=== PATIENT | male | born 1965 | race Caucasian/White ===

== ENCOUNTER 2018-11-15 12:06 | Emergency (ER) | payer MEDICAID ==
[~2018-11-15] VITALS: Ht 182.9 cm; Wt 91.0 kg
[2018-11-15] MEDS ORDERED: ACETAMINOPHEN WITH CODEINE 300/30MG TABLET PO STA (12:29)
[2018-11-15 13:30] LABS: COLOR URINE YELLOW (YELLOW); KETONES URINE NEGATIVE (NEGATIVE); LEUKOCYTE ESTERASE URINE NEGATIVE (NEGATIVE); NITRITE URINE NEGATIVE (NEGATIVE); OCCULT BLOOD URINE NEGATIVE (NEGATIVE); PROTEIN URINE NEGATIVE (NEGATIVE); SPECIFIC GRAVITY URINE 1.018 (1.005-1.030); UROBILINOGEN URINE 0.2 E.U./dL (0.2-1.0)
[2018-11-15 13:33] LABS: CLARITY URINE CLOUDY (CLEAR)
[2018-11-15 14:02] LABS: BASOPHILS % 1.3 % (0.0-2.0); HEMATOCRIT. 44.8 % (42.0-52.0); HEMOGLOBIN. 15.5 g/dL (14.0-18.0); LYMPHOCYTES % 24.7 % (20.0-50.0); MEAN CORPUSCULAR HEMOGLOBIN 30.2 pg (28.0-32.0); MEAN CORPUSCULAR VOLUME 87.5 fL (80.0-94.0); MEAN PLATELET VOLUME 10.4 fl (7.4-10.4); MONOCYTES % 9.9 % (2.0-8.0); NEUTROPHILS % 61.1 % (40.0-76.0); PLATELET 173 x1000/uL (130-400); RED BLOOD CELL COUNT 5.12 mill/uL (4.7-6.1); RED CELL DISTRIBUTION WIDTH 13.4 % (11.6-14.6)
[2018-11-15 14:03] LABS: CHLORIDE 108 mEq/L (98-107)
[2018-11-15 14:40] VITALS: BP 153/93
== END 2018-11-15 14:53 | disposition home or self-care (01) ==
LOC: ER 12:06
DX: R10.9 Unspecified abdominal pain (principal); I10 Essential (primary) hypertension; Z90.5 Acquired absence of kidney; Z98.890 Other specified postprocedural states; Z88.0 Allergy status to penicillin
CPT/HCPCS: 36415; 74176; 81003; 99284

== ENCOUNTER 2018-12-08 12:27 | Emergency (ER) | payer SELFPAY ==
[~2018-12-08] VITALS: Ht 182.9 cm; Wt 90.0 kg
[2018-12-08] MEDS ORDERED: SODIUM CHLORIDE 0.9% 1,000 ML IV ONE (15:00)
[2018-12-08] MEDS ORDERED: KETOROLAC 30MG/ML VIAL IV STA (15:00)
[2018-12-08] MEDS ORDERED: MORPHINE SULFATE 4 MG/ML CPJ (NOT FOR IM USE) IV ONE (15:15)
[2018-12-08] MEDS ORDERED: ONDANSETRON HCL 4MG/2ML INJ IV ONE (15:15)
[2018-12-08 15:52] LABS: BASOPHILS % 0.6 % (0.0-2.0); EOSINOPHILS % 0.3 % (0.0-5.0); HEMATOCRIT. 47.9 % (42.0-52.0); HEMOGLOBIN. 16.2 g/dL (14.0-18.0); LYMPHOCYTES % 12.4 % (20.0-50.0); MEAN CORPUSCULAR VOLUME 88.9 fL (80.0-94.0); MEAN PLATELET VOLUME 9.7 fl (7.4-10.4); MONOCYTES % 4.3 % (2.0-8.0); NEUTROPHILS % 82.4 % (40.0-76.0); PLATELET 221 x1000/uL (130-400); RED BLOOD CELL COUNT 5.39 mill/uL (4.7-6.1); RED CELL DISTRIBUTION WIDTH 13.6 % (11.6-14.6)
[2018-12-08 15:54] LABS: CHLORIDE 104 mEq/L (98-107)
[2018-12-08 15:56] LABS: PROTHROMBIN TIME 10.2 sec (9.6-11.0)
[2018-12-08 16:01] LABS: ETHANOL BLOOD < 10 mg/dL
[2018-12-08 16:44] LABS: CLARITY URINE CLEAR (CLEAR); COLOR URINE YELLOW (YELLOW); KETONES URINE NEGATIVE (NEGATIVE); LEUKOCYTE ESTERASE URINE NEGATIVE (NEGATIVE); NITRITE URINE NEGATIVE (NEGATIVE); OCCULT BLOOD URINE NEGATIVE (NEGATIVE); PROTEIN URINE NEGATIVE (NEGATIVE); SPECIFIC GRAVITY URINE 1.014 (1.005-1.030); UROBILINOGEN URINE 0.2 E.U./dL (0.2-1.0)
[2018-12-08 17:16] LABS: *AMPHETAMINES SCREEN URINE NEGATIVE (NEGATIVE); *BARBITURATES SCREEN URINE NEGATIVE (NEGATIVE); *BENZODIAZEPINES SCREEN URINE NEGATIVE (NEGATIVE); *COCAINE SCREEN URINE NEGATIVE (NEGATIVE); METHADONE URINE SCREEN NEGATIVE (NEGATIVE); OPIATES URINE SCREEN PRESUMTIVE POSITIVE (NEGATIVE)
[2018-12-08 17:17] LABS: CANNABINOID URINE SCREEN PRESUMTIVE POSITIVE (NEGATIVE); PHENCYCLIDINE URINE SCREEN NEGATIVE (NEGATIVE)
[2018-12-08 18:38] VITALS: BP 151/97
== END 2018-12-08 18:41 | disposition home or self-care (01) ==
LOC: ER 12:27
DX: R10.30 Lower abdominal pain, unspecified (principal); I10 Essential (primary) hypertension; F15.10 Other stimulant abuse, uncomplicated; Z90.5 Acquired absence of kidney; Z88.0 Allergy status to penicillin
CPT/HCPCS: 36415; 74176; 80053; 80305; 80320; 81003; 83690; 85025; 85610; 96374; 96375; 99284; J2270; J2405; J7030; G0480

== ENCOUNTER 2018-12-09 11:12 | Emergency (ER) | payer SELFPAY ==
[~2018-12-09] VITALS: Ht 177.8 cm; Wt 90.0 kg
[2018-12-09] MEDS: SODIUM CHLORIDE 0.9% 1,000 ML IV ONE (12:42)
[2018-12-09 12:55] LABS: BASOPHILS % 1.1 % (0.0-2.0); EOSINOPHILS % 1.8 % (0.0-5.0); HEMATOCRIT. 46.6 % (42.0-52.0); HEMOGLOBIN. 15.7 g/dL (14.0-18.0); LYMPHOCYTES % 19.3 % (20.0-50.0); MEAN CORPUSCULAR HEMOGLOBIN 30.2 pg (28.0-32.0); MEAN CORPUSCULAR VOLUME 89.2 fL (80.0-94.0); MEAN PLATELET VOLUME 9.1 fl (7.4-10.4); MONOCYTES % 7.9 % (2.0-8.0); NEUTROPHILS % 69.9 % (40.0-76.0); PLATELET 214 x1000/uL (130-400); RED BLOOD CELL COUNT 5.22 mill/uL (4.7-6.1); RED CELL DISTRIBUTION WIDTH 13.4 % (11.6-14.6)
[2018-12-09 13:00] LABS: CHLORIDE 106 mEq/L (98-107)
[2018-12-09 13:02] LABS: PROTHROMBIN TIME 10.4 sec (9.6-11.0)
[2018-12-09] MEDS: KETOROLAC 30MG/ML VIAL IV ONE (14:15)
[2018-12-09] MEDS: DICYCLOMINE HCL 10MG/ML 2ML AMP IM STA (14:15)
[2018-12-09 17:40] VITALS: BP 118/82
== END 2018-12-09 18:09 | disposition home or self-care (01) ==
LOC: ER 11:12
DX: R10.9 Unspecified abdominal pain (principal); R11.2 Nausea with vomiting, unspecified; J45.909 Unspecified asthma, uncomplicated; I10 Essential (primary) hypertension; F31.9 Bipolar disorder, unspecified; Z88.0 Allergy status to penicillin
CPT/HCPCS: 36415; 80053; 83690; 85025; 85610; 96361; 96372; 96374; 99283; J0500; J1885; J7030

== ENCOUNTER 2018-12-18 10:50 | Emergency (ER) | payer SELFPAY ==
[~2018-12-18] VITALS: Ht 177.8 cm; Wt 95.0 kg
[2018-12-18] MEDS ORDERED: ACETAMINOPHEN 325MG TABLET PO STA (11:27)
[2018-12-18] MEDS ORDERED: ONDANSETRON HCL 4MG/2ML INJ IV STA (11:27)
[2018-12-18] MEDS ORDERED: DIPHENHYDRAMINE 50MG/ML VIAL IV ONE (12:00)
[2018-12-18 13:36] LABS: CLARITY URINE CLEAR (CLEAR); COLOR URINE YELLOW (YELLOW); KETONES URINE NEGATIVE (NEGATIVE); LEUKOCYTE ESTERASE URINE NEGATIVE (NEGATIVE); NITRITE URINE NEGATIVE (NEGATIVE); OCCULT BLOOD URINE NEGATIVE (NEGATIVE); PROTEIN URINE NEGATIVE (NEGATIVE); SPECIFIC GRAVITY URINE 1.011 (1.005-1.030); UROBILINOGEN URINE 0.2 E.U./dL (0.2-1.0)
[2018-12-18 13:51] LABS: EOSINOPHILS % 1.1 % (0.0-5.0); HEMATOCRIT. 46.2 % (42.0-52.0); HEMOGLOBIN. 15.6 g/dL (14.0-18.0); LYMPHOCYTES % 22.4 % (20.0-50.0); MEAN CORPUSCULAR HEMOGLOBIN 30.2 pg (28.0-32.0); MEAN CORPUSCULAR VOLUME 89.6 fL (80.0-94.0); MEAN PLATELET VOLUME 9.7 fl (7.4-10.4); MONOCYTES % 5.3 % (2.0-8.0); NEUTROPHILS % 70.2 % (40.0-76.0); PLATELET 143 x1000/uL (130-400); RED BLOOD CELL COUNT 5.16 mill/uL (4.7-6.1); RED CELL DISTRIBUTION WIDTH 13.8 % (11.6-14.6)
[2018-12-18] MEDS ORDERED: HYDROCODONE/ACETAMINOPHEN 5/325MG TABLET PO ONE (14:00)
[2018-12-18 14:17] LABS: CHLORIDE 109 mEq/L (98-107)
[2018-12-18 19:00] VITALS: BP 141/96
== END 2018-12-18 19:18 | disposition home or self-care (01) ==
LOC: ER 10:50
DX: R10.9 Unspecified abdominal pain (principal); M54.5 Low back pain; J45.909 Unspecified asthma, uncomplicated; F31.9 Bipolar disorder, unspecified; I10 Essential (primary) hypertension; Z98.890 Other specified postprocedural states; Z88.0 Allergy status to penicillin
CPT/HCPCS: 36415; 71045; 74176; 80053; 81003; 83690; 84484; 85025; 96374; 96375; 99284; J1200; J2405

== ENCOUNTER 2019-09-07 12:19 | Emergency (ER) | payer MEDICAID, OTHER ==
[~2019-09-07] VITALS: Ht 175.3 cm; Wt 100.0 kg
[2019-09-07] MEDS ORDERED: MORPHINE SULFATE 4 MG/ML CPJ (NOT FOR IM USE) IV ONE (13:30)
[2019-09-07] MEDS ORDERED: ONDANSETRON HCL 4MG/2ML INJ IV ONE (14:30)
[2019-09-07] MEDS ORDERED: SODIUM CHLORIDE 0.9% 1,000 ML IV ONE (14:34)
[2019-09-07 15:16] LABS: CHLORIDE 102 mEq/L (98-107)
[2019-09-07 15:17] LABS: CLARITY URINE CLEAR (CLEAR); COLOR URINE YELLOW (YELLOW); KETONES URINE NEGATIVE (NEGATIVE); LEUKOCYTE ESTERASE URINE NEGATIVE (NEGATIVE); NITRITE URINE NEGATIVE (NEGATIVE); OCCULT BLOOD URINE NEGATIVE (NEGATIVE); PH URINE 5.5 (4.5-8.0); PROTEIN URINE NEGATIVE (NEGATIVE); SPECIFIC GRAVITY URINE 1.021 (1.005-1.030); UROBILINOGEN URINE 0.2 E.U./dL (0.2-1.0)
[2019-09-07 15:19] LABS: BASOPHILS % 0.6 % (0.0-2.0); HEMATOCRIT. 49.8 % (42.0-52.0); HEMOGLOBIN. 17.1 g/dL (14.0-18.0); LYMPHOCYTES % 16.6 % (20.0-50.0); MEAN CORPUSCULAR HEMOGLOBIN 30.9 pg (28.0-32.0); MEAN CORPUSCULAR VOLUME 90.1 fL (80.0-94.0); MEAN PLATELET VOLUME 9.7 fl (7.4-10.4); MONOCYTES % 6.7 % (2.0-8.0); NEUTROPHILS % 75.1 % (40.0-76.0); PLATELET 248 x1000/uL (130-400); PROTHROMBIN TIME 11.3 sec (9.6-11.0); RED BLOOD CELL COUNT 5.53 mill/uL (4.7-6.1); RED CELL DISTRIBUTION WIDTH 13.3 % (11.6-14.6)
[2019-09-07 15:22] LABS: ETHANOL BLOOD < 10 mg/dL
[2019-09-07 15:34] LABS: *AMPHETAMINES SCREEN URINE PRESUMTIVE POSITIVE (NEGATIVE); *BARBITURATES SCREEN URINE NEGATIVE (NEGATIVE); *BENZODIAZEPINES SCREEN URINE NEGATIVE (NEGATIVE); *COCAINE SCREEN URINE NEGATIVE (NEGATIVE); METHADONE URINE SCREEN NEGATIVE (NEGATIVE)
[2019-09-07 15:35] LABS: CANNABINOID URINE SCREEN PRESUMTIVE POSITIVE (NEGATIVE); OPIATES URINE SCREEN PRESUMTIVE POSITIVE (NEGATIVE); PHENCYCLIDINE URINE SCREEN NEGATIVE (NEGATIVE)
[2019-09-07 16:06] VITALS: BP 146/89
== END 2019-09-07 19:13 | disposition home or self-care (01) ==
LOC: ER 12:19
DX: R10.9 Unspecified abdominal pain (principal); J45.909 Unspecified asthma, uncomplicated; I10 Essential (primary) hypertension; Z98.890 Other specified postprocedural states; Z88.0 Allergy status to penicillin; Z90.5 Acquired absence of kidney
CPT/HCPCS: 36415; 74176; 80053; 80305; 80320; 81003; 83690; 85025; 85610; 93005; 96374; 96375; 99285; J2270; J2405; J7030; G0480

== ENCOUNTER 2020-05-02 16:18 | Emergency (ER) | payer OTHER ==
[~2020-05-02] VITALS: Ht 177.8 cm; Wt 93.0 kg
[2020-05-02] MEDS ORDERED: HYDROCODONE/ACETAMINOPHEN 5/325MG TABLET PO STA (18:16)
[2020-05-02] MEDS ORDERED: HYDROCODONE/APAP 7.5/325MG 1 TAB TABLET PO STA (20:33)
[2020-05-02] MEDS ORDERED: HYDR-4346 MT (20:35)
[2020-05-02 21:45] VITALS: BP 145/74
== END 2020-05-02 21:45 | disposition home or self-care (01) ==
LOC: ER 16:18
DX: S86.912A Strain of unspecified muscle(s) and tendon(s) at lower leg level, left leg, initial encounter (principal); Z88.0 Allergy status to penicillin; Y09 Assault by unspecified means; Y93.89 Activity, other specified; Y92.89 Other specified places as the place of occurrence of the external cause; Y99.8 Other external cause status
CPT/HCPCS: 73552; 73562; 99284; Z7610

== ENCOUNTER 2022-02-09 22:15 | Emergency (ER) | payer MEDICAID, OTHER ==
[~2022-02-09] VITALS: Ht 182.9 cm; Wt 77.4 kg
[~2022-02-09 22:15] MED LIST: HYDR-4346 MT
[2022-02-10] MEDS ORDERED: HYDROCODONE/ACETAMINOPHEN 5/325MG TABLET PO NR (00:11)
[2022-02-10] MEDS ORDERED: ONDANSETRON 4MG ODT PO NR (00:11)
[2022-02-10] MEDS ORDERED: CLINDAMYCIN HCL 150MG CAPSULE PO NR (00:15)
[2022-02-10] MEDS ORDERED: METR-167 PO ×3 (01:40→02:42)
[2022-02-10] MEDS ORDERED: TRAM50TA PO ×3 (01:40→02:42)
[2022-02-10] MEDS ORDERED: ONDA4TAB50 PO ×3 (01:40→02:42)
[2022-02-10] MEDS ORDERED: NAPR-681 PO ×3 (01:40→02:42)
[2022-02-10] MEDS ORDERED: CLIN-194 PO ×3 (01:40→02:42)
[2022-02-10 02:30] VITALS: BP 132/85
== END 2022-02-10 02:44 | disposition home or self-care (01) ==
LOC: ER 22:45
DX: K02.9 Dental caries, unspecified (principal); I88.9 Nonspecific lymphadenitis, unspecified; F31.9 Bipolar disorder, unspecified; I10 Essential (primary) hypertension; Z88.0 Allergy status to penicillin
CPT/HCPCS: 99284; Q0162